=== PATIENT | male | born 1955 | race African-American/Black ===

== ENCOUNTER 2017-04-06 17:00 | Emergency (ER) | payer MEDICAID ==
[~2017-04-06] VITALS: Ht 185.4 cm; Wt 81.0 kg
[~2017-04-06 17:00] MED LIST: ALBU2.5V13 NEB; DONE5TAB7 PO; HYDR-519 PO; HYDROCHLOROTHIAZIDE; METO-293 PO; SIMVASTATIN; TAMS0.4C31 PO
[2017-04-06] MEDS ORDERED: ONDANSETRON HCL 4MG/2ML VIAL IV STA (18:50)
[2017-04-06] MEDS ORDERED: KETOROLAC 30MG/ML VIAL IV STA (18:50)
[2017-04-06] MEDS ORDERED: SODIUM CHLORIDE 0.9% 1,000 ML IV ONE (18:50)
[2017-04-06 19:30] LABS: BASOPHILS % 0.3 % (0.0-2.0); EOSINOPHILS % 0.1 % (0.0-5.0); HEMATOCRIT. 46.3 % (42.0-52.0); HEMOGLOBIN. 15.5 g/dL (14.0-18.0); LYMPHOCYTES % 7.2 % (20.0-50.0); MEAN CORPUSCULAR HEMOGLOBIN 31.7 pg (28.0-32.0); MEAN CORPUSCULAR VOLUME 94.6 fL (80.0-94.0); MEAN PLATELET VOLUME 9.7 fl (7.4-10.4); MONOCYTES % 2.5 % (2.0-8.0); NEUTROPHILS % 89.9 % (40.0-76.0); PLATELET 201 x1000/uL (130-400); RED BLOOD CELL COUNT 4.89 mill/uL (4.7-6.1); RED CELL DISTRIBUTION WIDTH 14.1 % (11.6-14.6)
[2017-04-06 19:38] LABS: CHLORIDE 105 mEq/L (98-107)
[2017-04-06 19:48] LABS: CARBON DIOXIDE 25 mEq/L (21-32)
[2017-04-06 19:58] LABS: INR 1.1; PROTHROMBIN TIME 11.3 sec (9.4-11.6)
[2017-04-06] MEDS ORDERED: HYDROCODONE/ACETAMINOPHEN 5/325MG TABLET PO ONE (21:00)
[2017-04-06] MEDS ORDERED: MORPHINE SULFATE 4 MG/ML CPJ (NOT FOR IM USE) IV ONE (21:00)
[2017-04-06 21:14] VITALS: BP 192/63
[2017-04-06] MEDS ORDERED: ONDANSETRON 4MG ODT PO ONE (21:15)
== END 2017-04-06 21:37 | disposition home or self-care (01) ==
LOC: ER 17:54
DX: R10.9 Unspecified abdominal pain (principal); R11.2 Nausea with vomiting, unspecified; G89.29 Other chronic pain; I10 Essential (primary) hypertension; I25.2 Old myocardial infarction; Z88.8 Allergy status to other drugs, medicaments and biological substances
CPT/HCPCS: 36415; 74176; 80053; 83690; 84484; 85025; 85610; 93005; 96361; 96374; 96375; 99285; J1885; J2405; J7030; Q0162; Z7610

== ENCOUNTER 2017-05-29 23:37 | Emergency (ER) | payer MEDICAID ==
[~2017-05-29] VITALS: Ht 180.3 cm; Wt 82.0 kg
[2017-05-30] MEDS ORDERED: MAGNESIUM/ALUMINUM HYDROXIDE/SIMETHICONE 30ML UDC PO STA (00:09)
[2017-05-30] MEDS ORDERED: PANTOPRAZOLE SODIUM 40 MG/VIAL IV STA (00:09)
[2017-05-30] MEDS ORDERED: VISCOUS LIDOCAINE 2% 15 ML UDC PO STA (00:09)
[2017-05-30] MEDS ORDERED: ONDANSETRON HCL 4MG/2ML VIAL IV ONE (00:45)
[2017-05-30] MEDS ORDERED: METOCLOPRAMIDE HCL 10MG/2ML VIAL IV ONE (01:00)
[2017-05-30 01:18] LABS: CLARITY URINE CLOUDY (CLEAR); COLOR URINE YELLOW (YELLOW); KETONES URINE NEGATIVE (NEGATIVE); LEUKOCYTE ESTERASE URINE NEGATIVE (NEGATIVE); NITRITE URINE NEGATIVE (NEGATIVE); OCCULT BLOOD URINE 1+ (NEGATIVE); PH URINE >=9.0 (4.5-8.0); PROTEIN URINE 1+ (NEGATIVE); SPECIFIC GRAVITY URINE 1.015 (1.005-1.030); UROBILINOGEN URINE 0.2 E.U./dL (0.2-1.0)
[2017-05-30 01:22] LABS: BASOPHILS % 0.3 % (0.0-2.0); EOSINOPHILS % 0.4 % (0.0-5.0); HEMATOCRIT. 45.8 % (42.0-52.0); HEMOGLOBIN. 15.4 g/dL (14.0-18.0); MEAN CORPUSCULAR HEMOGLOBIN 31.6 pg (28.0-32.0); MEAN CORPUSCULAR VOLUME 93.8 fL (80.0-94.0); MEAN PLATELET VOLUME 9.4 fl (7.4-10.4); MONOCYTES % 2.9 % (2.0-8.0); NEUTROPHILS % 87.4 % (40.0-76.0); PLATELET 252 x1000/uL (130-400); RED BLOOD CELL COUNT 4.88 mill/uL (4.7-6.1); RED CELL DISTRIBUTION WIDTH 13.9 % (11.6-14.6)
[2017-05-30 01:24] LABS: CHLORIDE 103 mEq/L (98-107); PROTHROMBIN TIME 10.7 sec (9.4-11.6)
[2017-05-30] MEDS ORDERED: PROCHLORPERAZINE 10MG/2ML VIAL IV ONE (01:45)
[2017-05-30] MEDS ORDERED: DIPHENHYDRAMINE 50MG/ML VIAL IV ONE ×2 (01:45→02:15)
[2017-05-30 04:07] VITALS: BP 188/66
[2017-05-30 13:19] LABS: *AMPHETAMINES SCREEN URINE NEGATIVE (NEGATIVE); *BARBITURATES SCREEN URINE NEGATIVE (NEGATIVE); *BENZODIAZEPINES SCREEN URINE NEGATIVE (NEGATIVE); *COCAINE SCREEN URINE NEGATIVE (NEGATIVE); CANNABINOID URINE SCREEN PRESUMTIVE POSITIVE (NEGATIVE); METHADONE URINE SCREEN NEGATIVE (NEGATIVE); OPIATES URINE SCREEN NEGATIVE (NEGATIVE); PHENCYCLIDINE URINE SCREEN NEGATIVE (NEGATIVE)
== END 2017-05-30 04:09 | disposition home or self-care (01) ==
LOC: ER 23:37
DX: K29.70 Gastritis, unspecified, without bleeding (principal); I25.2 Old myocardial infarction; I10 Essential (primary) hypertension; Z88.8 Allergy status to other drugs, medicaments and biological substances
CPT/HCPCS: 36415; 80053; 80305; 81001; 83690; 85025; 85610; 96374; 96375; 99284; C9113; J0780; J1200; J2405; Z7610; 99285

== ENCOUNTER 2018-08-13 14:57 | Inpatient (IN) | payer MEDICARE, MEDICAID ==
[~2018-08-13] VITALS: Ht 165.1 cm; Wt 67.6 kg
[2018-08-13] MEDS ORDERED: FAMOTIDINE 20MG/2ML VIAL IV STA (15:17)
[2018-08-13] MEDS ORDERED: SODIUM CHLORIDE 0.9% 1,000 ML IV ONE (15:17)
[2018-08-13] MEDS ORDERED: ONDANSETRON HCL 4MG/2ML INJ IV STA (15:17)
[2018-08-13 15:49] LABS: BASOPHILS % 0.3 % (0.0-2.0); EOSINOPHILS % 0.9 % (0.0-5.0); HEMATOCRIT. 50.1 % (42.0-52.0); HEMOGLOBIN. 16.8 g/dL (14.0-18.0); LYMPHOCYTES % 19.6 % (20.0-50.0); MEAN CORPUSCULAR HEMOGLOBIN 32.1 pg (28.0-32.0); MEAN CORPUSCULAR VOLUME 95.4 fL (80.0-94.0); MEAN PLATELET VOLUME 9.1 fl (7.4-10.4); MONOCYTES % 9.5 % (2.0-8.0); NEUTROPHILS % 69.7 % (40.0-76.0); PLATELET 219 x1000/uL (130-400); RED BLOOD CELL COUNT 5.26 mill/uL (4.7-6.1); RED CELL DISTRIBUTION WIDTH 14.8 % (11.6-14.6)
[2018-08-13 15:52] LABS: CHLORIDE 105 mEq/L (98-107)
[2018-08-13 15:53] LABS: INR 1.1; PROTHROMBIN TIME 11.7 sec (9.6-11.0)
[2018-08-13 17:45] LABS: CLARITY URINE CLOUDY (CLEAR); COLOR URINE YELLOW (YELLOW); KETONES URINE TRACE (NEGATIVE); LEUKOCYTE ESTERASE URINE NEGATIVE (NEGATIVE); NITRITE URINE NEGATIVE (NEGATIVE); OCCULT BLOOD URINE TRACE (NEGATIVE); PH URINE 5.5 (4.5-8.0); PROTEIN URINE TRACE (NEGATIVE); SPECIFIC GRAVITY URINE 1.016 (1.005-1.030); UROBILINOGEN URINE 0.2 E.U./dL (0.2-1.0)
[2018-08-13 21:45] VITALS: BP 103/43
[2018-08-13] MEDS ORDERED: ACETAMINOPHEN 325MG TABLET PO PRN (22:30)
[2018-08-13] MEDS ORDERED: POTASSIUM CHLORIDE 20MEQ TABLET SR PO NR (22:30)
[2018-08-13] MEDS ORDERED: HYDROCODONE/ACETAMINOPHEN 5/325MG TABLET PO PRN (22:30)
[2018-08-13] MEDS: SODIUM CHLORIDE 0.9% 1,000 ML IV SCH (23:02)
[2018-08-13 23:56] LABS: CREATINE KINASE MB FRACTION 1.6 ng/mL (0.5-3.6)
[2018-08-14] VITALS: BP 93/42
[2018-08-14] MEDS: METRONIDAZOLE 500 MG PREMIX 100 ML IV SCH ×2 (00:20→08:07)
[2018-08-14] MEDS ORDERED: LEVOFLOXACIN 500MG PREMIX 100 ML IV NR (01:00)
[2018-08-14 01:05] LABS: *AMPHETAMINES SCREEN URINE NEGATIVE (NEGATIVE); *BARBITURATES SCREEN URINE NEGATIVE (NEGATIVE); *BENZODIAZEPINES SCREEN URINE PRESUMTIVE POSITIVE (NEGATIVE); *COCAINE SCREEN URINE NEGATIVE (NEGATIVE)
[2018-08-14 01:06] LABS: CANNABINOID URINE SCREEN PRESUMTIVE POSITIVE (NEGATIVE); METHADONE URINE SCREEN NEGATIVE (NEGATIVE); OPIATES URINE SCREEN NEGATIVE (NEGATIVE); PHENCYCLIDINE URINE SCREEN NEGATIVE (NEGATIVE)
[2018-08-14 04:00] VITALS: BP 113/52
[2018-08-14] MEDS ORDERED: METRONIDAZOLE 500 MG PREMIX 100 ML IV SCH (06:00)
[2018-08-14 08:00] VITALS: BP 93/56
[2018-08-14] MEDS: FOLIC ACID 1MG TABLET PO SCH (08:08)
[2018-08-14] MEDS: ENOXAPARIN 40MG/0.4ML SYR SUBCUT SCH (08:08)
[2018-08-14] MEDS: SODIUM CHLORIDE 0.9% 1,000 ML IV SCH ×2 (08:08→19:19)
[2018-08-14 08:09] LABS: CREATINE KINASE MB FRACTION 1.4 ng/mL (0.5-3.6)
[2018-08-14 12:47] VITALS: BP 101/57
[2018-08-14] MEDS ORDERED: ONDANSETRON HCL 4MG/2ML INJ IV PRN (13:00)
[2018-08-14 15:18] LABS: CHLORIDE 113 mEq/L (98-107)
[2018-08-14 15:21] LABS: BASOPHILS % 0.6 % (0.0-2.0); EOSINOPHILS % 1.6 % (0.0-5.0); HEMATOCRIT. 38.8 % (42.0-52.0); LYMPHOCYTES % 27.8 % (20.0-50.0); MEAN CORPUSCULAR HEMOGLOBIN 31.7 pg (28.0-32.0); MEAN CORPUSCULAR VOLUME 94.7 fL (80.0-94.0); MEAN PLATELET VOLUME 9.2 fl (7.4-10.4); MONOCYTES % 7.9 % (2.0-8.0); NEUTROPHILS % 62.1 % (40.0-76.0); PLATELET 168 x1000/uL (130-400); RED BLOOD CELL COUNT 4.09 mill/uL (4.7-6.1); RED CELL DISTRIBUTION WIDTH 14.8 % (11.6-14.6)
[2018-08-14 15:29] LABS: CREATINE KINASE 78 IU/L (39-308); CREATINE KINASE MB FRACTION < 1.0 ng/mL (0.5-3.6)
[2018-08-14 16:21] VITALS: BP 95/42
[2018-08-14 19:45] VITALS: BP 91/44
[2018-08-15] VITALS: BP 112/48
[2018-08-15] MEDS ORDERED: LEVOFLOXACIN 250MG PREMIX 50 ML IV SCH (01:00)
[2018-08-15 04:00] VITALS: BP 121/45
[2018-08-15] MEDS: SODIUM CHLORIDE 0.9% 1,000 ML IV SCH (07:23)
[2018-08-15 08:00] VITALS: BP 109/61
[2018-08-15] MEDS: FOLIC ACID 1MG TABLET PO SCH (08:32)
[2018-08-15] MEDS: ENOXAPARIN 40MG/0.4ML SYR SUBCUT SCH (08:32)
[2018-08-15 12:00] VITALS: BP 100/63
[2018-08-15] MEDS ORDERED: DOCUSATE SODIUM 100MG CAPSULE PO SCH (12:00)
[2018-08-15] MEDS ORDERED: LACTULOSE 20G/30ML UDC PO PRN (12:00)
[2018-08-15 15:56] VITALS: BP 113/48
[2018-08-15 16:23] VITALS: BP 113/48
== END 2018-08-15 17:09 | disposition home or self-care (01) | DRG 73 ==
LOC: ER 15:17 → 8WST 16:25 → EDBEDREQ 16:25 → EDBEDREQTM 16:25 → ENRESERV 20:04 → 8WST 22:20
PROVIDERS: ADMIT Internal Medicine Nephrology; ATTEND Internal Medicine Nephrology
DX: G90.8 Other disorders of autonomic nervous system (principal); N17.0 Acute kidney failure with tubular necrosis; N39.0 Urinary tract infection, site not specified; E86.0 Dehydration; K52.9 Noninfective gastroenteritis and colitis, unspecified; E87.6 Hypokalemia; F12.90 Cannabis use, unspecified, uncomplicated; I11.0 Hypertensive heart disease with heart failure; I25.10 Atherosclerotic heart disease of native coronary artery without angina pectoris; I50.9 Heart failure, unspecified; Z96.659 Presence of unspecified artificial knee joint; K59.00 Constipation, unspecified; M43.06 Spondylolysis, lumbar region; M47.816 Spondylosis without myelopathy or radiculopathy, lumbar region; N40.0 Benign prostatic hyperplasia without lower urinary tract symptoms; Z95.5 Presence of coronary angioplasty implant and graft; I25.2 Old myocardial infarction; Z88.9 Allergy status to unspecified drugs, medicaments and biological substances
CPT/HCPCS: 36415; 71045; 74176; 80048; 80305; 82550; 82553; 83735; 83880; 84484; 93005; 93306; 96361; 96374; 96375; 99285; J1650; J1956; J2405; J3490; J7030; J7040

== ENCOUNTER 2018-09-10 08:35 | Emergency (ER) | payer MEDICARE, MEDICAID ==
[~2018-09-10] VITALS: Ht 177.8 cm; Wt 82.0 kg
[2018-09-10] MEDS ORDERED: FAMOTIDINE 20MG/2ML VIAL IV STA (09:00)
[2018-09-10] MEDS ORDERED: MORPHINE SULFATE 4 MG/ML CPJ (NOT FOR IM USE) IV STA (09:00)
[2018-09-10] MEDS ORDERED: SODIUM CHLORIDE 0.9% 1,000 ML IV ONE (09:00)
[2018-09-10] MEDS ORDERED: ONDANSETRON HCL 4MG/2ML INJ IV STA (09:00)
[2018-09-10 09:28] LABS: BASOPHILS % 0.4 % (0.0-2.0); EOSINOPHILS % 0.1 % (0.0-5.0); HEMATOCRIT. 48.9 % (42.0-52.0); HEMOGLOBIN. 16.1 g/dL (14.0-18.0); LYMPHOCYTES % 8.4 % (20.0-50.0); MEAN CORPUSCULAR HEMOGLOBIN 31.8 pg (28.0-32.0); MEAN CORPUSCULAR VOLUME 96.7 fL (80.0-94.0); MEAN PLATELET VOLUME 8.4 fl (7.4-10.4); MONOCYTES % 2.7 % (2.0-8.0); NEUTROPHILS % 88.4 % (40.0-76.0); PLATELET 208 x1000/uL (130-400); RED BLOOD CELL COUNT 5.05 mill/uL (4.7-6.1); RED CELL DISTRIBUTION WIDTH 15.3 % (11.6-14.6)
[2018-09-10 09:34] LABS: CLARITY URINE CLEAR (CLEAR); COLOR URINE YELLOW (YELLOW); KETONES URINE NEGATIVE (NEGATIVE); LEUKOCYTE ESTERASE URINE NEGATIVE (NEGATIVE); NITRITE URINE NEGATIVE (NEGATIVE); OCCULT BLOOD URINE 2+ (NEGATIVE); PH URINE >=9.0 (4.5-8.0); PROTEIN URINE 2+ (NEGATIVE); SPECIFIC GRAVITY URINE 1.015 (1.005-1.030); UROBILINOGEN URINE 0.2 E.U./dL (0.2-1.0)
[2018-09-10 09:35] LABS: CHLORIDE 104 mEq/L (98-107); PROTHROMBIN TIME 10.7 sec (9.6-11.0)
[2018-09-10 09:40] LABS: ETHANOL BLOOD < 10 mg/dL
[2018-09-10 09:46] LABS: *AMPHETAMINES SCREEN URINE NEGATIVE (NEGATIVE); *BARBITURATES SCREEN URINE NEGATIVE (NEGATIVE); *BENZODIAZEPINES SCREEN URINE NEGATIVE (NEGATIVE); *COCAINE SCREEN URINE NEGATIVE (NEGATIVE)
[2018-09-10 09:47] LABS: CANNABINOID URINE SCREEN PRESUMTIVE POSITIVE (NEGATIVE); METHADONE URINE SCREEN NEGATIVE (NEGATIVE); OPIATES URINE SCREEN NEGATIVE (NEGATIVE)
[2018-09-10 09:48] LABS: PHENCYCLIDINE URINE SCREEN NEGATIVE (NEGATIVE)
[2018-09-10 11:00] VITALS: BP 142/70
== END 2018-09-10 11:02 | disposition home or self-care (01) ==
LOC: ER 08:35
DX: R10.13 Epigastric pain (principal); G89.29 Other chronic pain; R11.2 Nausea with vomiting, unspecified; I10 Essential (primary) hypertension; I25.2 Old myocardial infarction; Z88.8 Allergy status to other drugs, medicaments and biological substances; Z79.899 Other long term (current) drug therapy
CPT/HCPCS: 36415; 71045; 80053; 80305; 80320; 81003; 83690; 84484; 85025; 85610; 93005; 96361; 96374; 96375; 99284; J2270; J2405; J3490; J7030; G0480

== ENCOUNTER 2019-06-27 23:28 | Emergency (ER) | payer MEDICARE, MEDICAID ==
[~2019-06-27] VITALS: Ht 177.8 cm; Wt 77.0 kg
[2019-06-28] MEDS ORDERED: KETOROLAC 30MG/ML VIAL IV STA (00:01)
[2019-06-28] MEDS ORDERED: ONDANSETRON HCL 4MG/2ML INJ IV STA (00:01)
[2019-06-28] MEDS ORDERED: AMLODIPINE 5MG TABLET PO ONE (00:15)
[2019-06-28 00:39] LABS: HEMATOCRIT. 39.6 % (42.0-52.0); HEMOGLOBIN. 13.5 g/dL (14.0-18.0); MEAN CORPUSCULAR HEMOGLOBIN 30.6 pg (28.0-32.0); MEAN CORPUSCULAR VOLUME 89.7 fL (80.0-94.0); MEAN PLATELET VOLUME 8.9 fl (7.4-10.4); PLATELET 159 x1000/uL (130-400); RED BLOOD CELL COUNT 4.41 mill/uL (4.7-6.1); RED CELL DISTRIBUTION WIDTH 15.6 % (11.6-14.6)
[2019-06-28 00:46] LABS: CHLORIDE 107 mEq/L (98-107)
[2019-06-28 01:18] LABS: CLARITY URINE CLEAR (CLEAR); COLOR URINE YELLOW (YELLOW); KETONES URINE TRACE (NEGATIVE); LEUKOCYTE ESTERASE URINE NEGATIVE (NEGATIVE); NITRITE URINE NEGATIVE (NEGATIVE); OCCULT BLOOD URINE 2+ (NEGATIVE); PH URINE 6.5 (4.5-8.0); PROTEIN URINE 2+ (NEGATIVE); SPECIFIC GRAVITY URINE 1.019 (1.005-1.030)
[2019-06-28] MEDS ORDERED: PREDNISONE 20MG TABLET PO STA (01:25)
[2019-06-28] MEDS ORDERED: ALBUTEROL (0.083%) 2.5MG/3ML NEB HHN STA (01:25)
[2019-06-28] MEDS ORDERED: IPRATROPIUM BROMIDE (0.02%) 0.5MG/2.5ML NEB HHN STA (01:25)
[2019-06-28 03:10] VITALS: BP 158/60
[2019-06-28 03:42] LABS: ATYPICAL LYMPHOCYTES 1
[2019-06-28 03:44] LABS: PLATELET ESTIMATE NORMAL
== END 2019-06-28 04:04 | disposition home or self-care (01) ==
LOC: ER 23:28
DX: J20.9 Acute bronchitis, unspecified (principal); R11.2 Nausea with vomiting, unspecified; R10.9 Unspecified abdominal pain; I11.9 Hypertensive heart disease without heart failure; I25.2 Old myocardial infarction; Z88.6 Allergy status to analgesic agent
CPT/HCPCS: 36415; 71045; 76705; 80053; 81003; 83690; 85025; 94640; 96374; 96375; 99284; J1885; J2405; J7512

== ENCOUNTER 2021-12-18 06:16 | Inpatient (IN) | payer MEDICARE, MEDICAID ==
[~2021-12-18] VITALS: Ht 167.6 cm; Wt 76.2 kg
[2021-12-18] MEDS ORDERED: KETOROLAC 30MG/ML VIAL IV STA (07:00)
[2021-12-18] MEDS ORDERED: ONDANSETRON HCL 4MG/2ML INJ IV STA (07:00)
[2021-12-18 07:06] LABS: BASOPHILS % 0.3 % (0.0-2.0); EOSINOPHILS % 2.7 % (0.0-5.0); HEMATOCRIT. 46.7 % (42.0-52.0); HEMOGLOBIN. 15.6 g/dL (14.0-18.0); LYMPHOCYTES % 13.7 % (20.0-50.0); MEAN CORPUSCULAR HEMOGLOBIN 29.6 pg (28.0-32.0); MEAN CORPUSCULAR VOLUME 88.4 fL (80.0-94.0); MEAN PLATELET VOLUME 8.1 fl (7.4-10.4); MONOCYTES % 5.6 % (2.0-8.0); NEUTROPHILS % 77.7 % (40.0-76.0); PLATELET 273 x1000/uL (130-400); RED BLOOD CELL COUNT 5.29 mill/uL (4.7-6.1); RED CELL DISTRIBUTION WIDTH 15.2 % (11.6-14.6)
[2021-12-18 07:15] LABS: CLARITY URINE CLEAR (CLEAR); COLOR URINE YELLOW (YELLOW); KETONES URINE NEGATIVE (NEGATIVE); LEUKOCYTE ESTERASE URINE NEGATIVE (NEGATIVE); NITRITE URINE NEGATIVE (NEGATIVE); OCCULT BLOOD URINE 2+ (NEGATIVE); PH URINE 7.5 (4.5-8.0); PROTEIN URINE 2+ (NEGATIVE); SPECIFIC GRAVITY URINE 1.009 (1.005-1.030); UROBILINOGEN URINE 0.2 E.U./dL (0.2-1.0)
[2021-12-18 07:16] LABS: PROTHROMBIN TIME 10.9 sec (9.6-11.0)
[2021-12-18 07:18] LABS: CHLORIDE 106 mEq/L (98-107)
[2021-12-18] MEDS ORDERED: SODIUM CHLORIDE 0.9% 1000ML BAG (SEPSIS BOLUS) IV ONE (08:15)
[2021-12-18] MEDS ORDERED: PIPERACILLIN/TAZ 3.375G PREMIX 50 ML IV ONE (08:15)
[2021-12-18] MEDS ORDERED: VANCOMYCIN 1G PREMIX 200 ML IV ONE (08:15)
[2021-12-18] MEDS ORDERED: HYDRALAZINE 20MG/ML VIAL IV ONE (09:00)
[2021-12-18] MEDS ORDERED: GUAIFENESIN 200MG/10ML SUGAR FREE UDC PO PRN (10:15)
[2021-12-18] MEDS ORDERED: DOCUSATE SODIUM 100MG CAPSULE PO PRN (10:15)
[2021-12-18] MEDS ORDERED: NA PHOS,M-B/NA PHOS,DI-BA ENEMA 118ML PR PRN (10:15)
[2021-12-18] MEDS ORDERED: MAGNESIUM/ALUMINUM HYDROXIDE/SIMETHICONE 30ML UDC PO PRN (10:15)
[2021-12-18] MEDS ORDERED: ONDANSETRON HCL 4MG/2ML INJ IV PRN (10:15)
[2021-12-18] MEDS ORDERED: ACETAMINOPHEN 325MG TABLET PO PRN ×2 (10:15)
[2021-12-18] MEDS ORDERED: NITROGLYCERIN 0.4MG TABLET SL SL PRN (10:15)
[2021-12-18] MEDS: DEXAMETHASONE 4MG TABLET PO SCH (10:53)
[2021-12-18] MEDS: NITROGLYCERIN OINT 1GM/INCH UDPKT TD SCH ×3 (10:53→22:52)
[2021-12-18] MEDS: PANTOPRAZOLE SODIUM 40 MG/VIAL IV SCH (10:53)
[2021-12-18] MEDS: DONEPEZIL HCL 10MG TABLET PO SCH (10:53)
[2021-12-18] MEDS: AMLODIPINE 10MG TABLET PO SCH (10:53)
[2021-12-18] MEDS: LOSARTAN POTASSIUM 50 MG TABLET PO SCH (10:54)
[2021-12-18 11:54] LABS: *AMPHETAMINES SCREEN URINE NEGATIVE (NEGATIVE); *BARBITURATES SCREEN URINE NEGATIVE (NEGATIVE); *BENZODIAZEPINES SCREEN URINE NEGATIVE (NEGATIVE); *COCAINE SCREEN URINE NEGATIVE (NEGATIVE); CANNABINOID URINE SCREEN PRESUMTIVE POSITIVE (NEGATIVE); METHADONE URINE SCREEN NEGATIVE (NEGATIVE); OPIATES URINE SCREEN NEGATIVE (NEGATIVE); PHENCYCLIDINE URINE SCREEN NEGATIVE (NEGATIVE)
[2021-12-18 11:56] LABS: ETHANOL BLOOD < 10 mg/dL; HDL CHOLESTEROL 53 mg/dL (40-59); LDL CHOLESTEROL 109 mg/dL (5-100); T4 FREE 1.07 ng/dL (0.76-1.46); TOTAL IRON BINDING CAPACITY 536 ug/dL (250-450)
[2021-12-18] MEDS: METOCLOPRAMIDE 10MG/10 ML UDC PO SCH (12:47)
[2021-12-18] MEDS: SUCRALFATE 1 G/10 ML UDC PO SCH ×3 (12:47→22:52)
[2021-12-18] MEDS: ENOXAPARIN 40MG/0.4ML SYR SUBCUT SCH (12:47)
[2021-12-18] MEDS: SODIUM CHLORIDE 0.9% 1,000 ML IV SCH ×2 (12:48→22:53)
[2021-12-18] MEDS ORDERED: PIPERACILLIN/TAZ 3.375G PREMIX 50 ML IV NR (14:00)
[2021-12-18 16:17] LABS: FOLIC ACID (FOLATE) SERUM 5.1 ng/mL (>5.38)
[2021-12-18] MEDS: CLONIDINE 0.1MG TABLET PO PRN (16:34)
[2021-12-18 16:46] LABS: CREATINE KINASE MB FRACTION 3.7 ng/mL (0.5-3.6)
[2021-12-18] MEDS: KETOROLAC 15MG/ML VIAL IV PRN (18:39)
[2021-12-18 19:30] VITALS: BP 126/43
[2021-12-18 20:00] VITALS: BP 126/43
[2021-12-18] MEDS ORDERED: VANCOMYCIN 1GM PMX (XELLIA) 200 ML IV SCH (20:00)
[2021-12-18 23:26] LABS: CREATINE KINASE MB FRACTION 3.2 ng/mL (0.5-3.6)
[2021-12-19] VITALS: BP 150/52
[2021-12-19] MEDS: PIPERACILLIN/TAZOBACTAM 3.375G in DEXT 5% WATER 50ML IV SCH ×4 (00:10→22:05)
[2021-12-19] MEDS: ZOLPIDEM TARTRATE 5MG TABLET PO PRN (00:10)
[2021-12-19 04:00] VITALS: BP 150/53
[2021-12-19] MEDS: NITROGLYCERIN OINT 1GM/INCH UDPKT TD SCH ×3 (06:53→22:05)
[2021-12-19] MEDS: SUCRALFATE 1 G/10 ML UDC PO SCH ×4 (06:53→22:04)
[2021-12-19 08:00] VITALS: BP 148/52
[2021-12-19 08:06] LABS: BASOPHILS % 0.1 % (0.0-2.0); HEMATOCRIT. 38.4 % (42.0-52.0); HEMOGLOBIN. 12.8 g/dL (14.0-18.0); LYMPHOCYTES % 7.6 % (20.0-50.0); MEAN CORPUSCULAR HEMOGLOBIN 29.4 pg (28.0-32.0); MEAN CORPUSCULAR VOLUME 88.3 fL (80.0-94.0); MEAN PLATELET VOLUME 8.6 fl (7.4-10.4); MONOCYTES % 6.9 % (2.0-8.0); NEUTROPHILS % 85.4 % (40.0-76.0); PLATELET 215 x1000/uL (130-400); RED BLOOD CELL COUNT 4.35 mill/uL (4.7-6.1); RED CELL DISTRIBUTION WIDTH 15.2 % (11.6-14.6)
[2021-12-19 08:44] LABS: CHLORIDE 107 mEq/L (98-107)
[2021-12-19] MEDS: PANTOPRAZOLE SODIUM 40 MG/VIAL IV SCH (09:00)
[2021-12-19] MEDS: ENOXAPARIN 40MG/0.4ML SYR SUBCUT SCH (10:18)
[2021-12-19] MEDS: AMLODIPINE 10MG TABLET PO SCH (10:21)
[2021-12-19] MEDS: DEXAMETHASONE 4MG TABLET PO SCH (10:22)
[2021-12-19] MEDS: LOSARTAN POTASSIUM 50 MG TABLET PO SCH (10:23)
[2021-12-19] MEDS: DONEPEZIL HCL 10MG TABLET PO SCH (10:27)
[2021-12-19] MEDS: METOCLOPRAMIDE 10MG/10 ML UDC PO SCH ×3 (10:55→18:01)
[2021-12-19 12:00] VITALS: BP 151/53
[2021-12-19] MEDS: SODIUM CHLORIDE 0.9% 1,000 ML IV SCH (14:35)
[2021-12-19 16:00] VITALS: BP 147/51
[2021-12-19] MEDS: VANCOMYCIN 1.25GM PMX (XELLIA) 250 ML IV SCH (18:02)
[2021-12-19 20:00] VITALS: BP 151/51
[2021-12-20] VITALS: BP 151/51
[2021-12-20] MEDS: SODIUM CHLORIDE 0.9% 1,000 ML IV SCH ×2 (02:15→15:35)
[2021-12-20 04:00] VITALS: BP 135/60
[2021-12-20] MEDS: PIPERACILLIN/TAZOBACTAM 3.375G in DEXT 5% WATER 50ML IV SCH ×3 (06:16→21:33)
[2021-12-20] MEDS: NITROGLYCERIN OINT 1GM/INCH UDPKT TD SCH ×3 (06:17→21:34)
[2021-12-20] MEDS: SUCRALFATE 1 G/10 ML UDC PO SCH ×4 (06:17→21:33)
[2021-12-20] MEDS: METOCLOPRAMIDE 10MG/10 ML UDC PO SCH (06:17)
[2021-12-20 07:21] LABS: HEMATOCRIT 35.4 % (42.0-52.0); HEMOGLOBIN 11.7 g/dL (14.0-18.0); MEAN CORPUSCULAR HEMOGLOBIN 29.5 pg (28.0-32.0); MEAN CORPUSCULAR VOLUME 89.3 fL (80.0-94.0); PLATELET 202 x1000/uL (130-400); RED BLOOD CELL COUNT 3.97 mill/uL (4.7-6.1); RED CELL DISTRIBUTION WIDTH 15.3 % (11.6-14.6)
[2021-12-20 07:27] LABS: CHLORIDE 110 mEq/L (98-107)
[2021-12-20 08:00] VITALS: BP 120/53
[2021-12-20] MEDS: PANTOPRAZOLE SODIUM 40 MG/VIAL IV SCH (08:00)
[2021-12-20] MEDS: AMLODIPINE 10MG TABLET PO SCH (10:08)
[2021-12-20] MEDS: DEXAMETHASONE 4MG TABLET PO SCH (10:08)
[2021-12-20] MEDS: DONEPEZIL HCL 10MG TABLET PO SCH (10:09)
[2021-12-20] MEDS: ENOXAPARIN 40MG/0.4ML SYR SUBCUT SCH (10:10)
[2021-12-20] MEDS: LOSARTAN POTASSIUM 50 MG TABLET PO SCH (10:14)
[2021-12-20] MEDS: VANCOMYCIN 1.25GM PMX (XELLIA) 250 ML IV SCH (11:54)
[2021-12-20 12:00] VITALS: BP 122/57
[2021-12-20 16:00] VITALS: BP 127/63
[2021-12-20 20:00] VITALS: BP 128/57
[2021-12-20] MEDS: KETOROLAC 15MG/ML VIAL IV PRN (21:34)
[2021-12-20] MEDS: ZOLPIDEM TARTRATE 5MG TABLET PO PRN (21:35)
[2021-12-21] VITALS: BP 132/50
[2021-12-21 04:00] VITALS: BP 138/55
[2021-12-21] MEDS: SODIUM CHLORIDE 0.9% 1,000 ML IV SCH ×2 (04:55→17:50)
[2021-12-21] MEDS: SUCRALFATE 1 G/10 ML UDC PO SCH ×4 (06:33→21:32)
[2021-12-21] MEDS: VANCOMYCIN 1.25GM PMX (XELLIA) 250 ML IV SCH (06:34)
[2021-12-21] MEDS: PIPERACILLIN/TAZOBACTAM 3.375G in DEXT 5% WATER 50ML IV SCH ×3 (06:34→21:32)
[2021-12-21] MEDS: NITROGLYCERIN OINT 1GM/INCH UDPKT TD SCH ×3 (06:34→21:33)
[2021-12-21 06:37] LABS: BASOPHILS % 0.1 % (0.0-2.0); HEMATOCRIT. 34.8 % (42.0-52.0); HEMOGLOBIN. 11.7 g/dL (14.0-18.0); LYMPHOCYTES % 10.6 % (20.0-50.0); MEAN CORPUSCULAR HEMOGLOBIN 29.9 pg (28.0-32.0); MEAN CORPUSCULAR VOLUME 89.2 fL (80.0-94.0); MEAN PLATELET VOLUME 8.1 fl (7.4-10.4); MONOCYTES % 8.3 % (2.0-8.0); PLATELET 161 x1000/uL (130-400); RED CELL DISTRIBUTION WIDTH 15.2 % (11.6-14.6)
[2021-12-21 06:49] LABS: CHLORIDE 109 mEq/L (98-107)
[2021-12-21 07:10] LABS: VANCOMYCIN TROUGH 11.1 ug/mL (5.0-10.0)
[2021-12-21 08:00] VITALS: BP 149/53
[2021-12-21] MEDS ORDERED: POTASSIUM CHLORIDE 20MEQ TABLET SR PO NR (08:00)
[2021-12-21] MEDS: PANTOPRAZOLE SODIUM 40 MG/VIAL IV SCH (09:21)
[2021-12-21] MEDS: ENOXAPARIN 40MG/0.4ML SYR SUBCUT SCH (09:21)
[2021-12-21] MEDS: LOSARTAN POTASSIUM 50 MG TABLET PO SCH (09:22)
[2021-12-21] MEDS: DEXAMETHASONE 4MG TABLET PO SCH (09:22)
[2021-12-21] MEDS: DONEPEZIL HCL 10MG TABLET PO SCH (09:22)
[2021-12-21] MEDS: AMLODIPINE 10MG TABLET PO SCH (09:22)
[2021-12-21 12:00] VITALS: BP 122/40
[2021-12-21 16:00] VITALS: BP 149/53
[2021-12-21 20:00] VITALS: BP 121/40
[2021-12-21] MEDS: ZOLPIDEM TARTRATE 5MG TABLET PO PRN (22:09)
[2021-12-22] VITALS: BP 145/53
[2021-12-22] MEDS: VANCOMYCIN 1.25GM PMX (XELLIA) 250 ML IV SCH (00:40)
[2021-12-22 04:00] VITALS: BP 163/58
[2021-12-22] MEDS: CLONIDINE 0.1MG TABLET PO PRN (04:26)
[2021-12-22] MEDS: PIPERACILLIN/TAZOBACTAM 3.375G in DEXT 5% WATER 50ML IV SCH ×2 (05:03→13:19)
[2021-12-22] MEDS: NITROGLYCERIN OINT 1GM/INCH UDPKT TD SCH ×2 (05:04→13:20)
[2021-12-22] MEDS: SODIUM CHLORIDE 0.9% 1,000 ML IV SCH (06:21)
[2021-12-22] MEDS: SUCRALFATE 1 G/10 ML UDC PO SCH ×2 (06:21→13:19)
[2021-12-22 08:00] VITALS: BP 144/50
[2021-12-22] MEDS: PANTOPRAZOLE SODIUM 40 MG/VIAL IV SCH (08:58)
[2021-12-22] MEDS: DONEPEZIL HCL 10MG TABLET PO SCH (08:59)
[2021-12-22] MEDS: LOSARTAN POTASSIUM 50 MG TABLET PO SCH (08:59)
[2021-12-22] MEDS: AMLODIPINE 10MG TABLET PO SCH (08:59)
[2021-12-22] MEDS: ENOXAPARIN 40MG/0.4ML SYR SUBCUT SCH (08:59)
[2021-12-22] MEDS: DEXAMETHASONE 4MG TABLET PO SCH (09:00)
[2021-12-22 12:04] VITALS: BP 142/45
[2021-12-22 14:04] VITALS: BP 142/52
[2021-12-23] MEDS ORDERED: FAMOTIDINE 20MG TABLET PO SCH (07:20)
== END 2021-12-22 17:08 | disposition home health service (06) | DRG 872 ==
LOC: ER 06:16 → 6WST 09:15 → EDBEDREQ 09:36 → EDBEDREQTM 09:36 → EDBEDREQSVC 09:36 → 6WST 18:09
PROVIDERS: ADMIT Internal Medicine; ATTEND Internal Medicine
DX: A41.9 Sepsis, unspecified organism (principal); E87.1 Hypo-osmolality and hyponatremia; E87.2 Acidosis; F12.10 Cannabis abuse, uncomplicated; F03.90 Unspecified dementia, unspecified severity, without behavioral disturbance, psychotic disturbance, mood disturbance, and anxiety; E78.00 Pure hypercholesterolemia, unspecified; I25.10 Atherosclerotic heart disease of native coronary artery without angina pectoris; E03.8 Other specified hypothyroidism; I25.2 Old myocardial infarction; I10 Essential (primary) hypertension; R73.9 Hyperglycemia, unspecified; R74.01 Elevation of levels of liver transaminase levels; R11.2 Nausea with vomiting, unspecified; E78.5 Hyperlipidemia, unspecified; Z88.8 Allergy status to other drugs, medicaments and biological substances; Z96.642 Presence of left artificial hip joint; Z95.5 Presence of coronary angioplasty implant and graft; R74.8 Abnormal levels of other serum enzymes; R94.6 Abnormal results of thyroid function studies
CPT/HCPCS: 36415; 71045; 74176; 80048; 80053; 80061; 80202; 80305; 80320; 81003; 82550; 82553; 82607; 82728; 82746; 83036; 83540; 83550; 83605; 83735; 84100; 84145; 84439; 84443; 84484; 85025; 85027; 93005; 93306; 93970; 97162; 97166; 97535; 99291; C1893; C9113; J0360; J1650; J1885; J2405; J2543; J3370; J7030; J7060; J8540; J8597; G0480